=== PATIENT | female | born 1995 | race Caucasian/White ===

== ENCOUNTER 2022-07-01 15:26 | Emergency (ER) | payer OTHER, SELFPAY ==
[2022-07-01 15:30] VITALS: BP 127/60; PULSE 92; RESP 17; TEMP 36.8; O2SAT 100
--- NOTE | 2022-07-01 15:37 | ECG_ITS ---
Measurements Intervals [place] Rate: 91 P: 265 SC: 104 QRS: 58 QRSD: 89 T: 50 QT: 356 QTc: 438 Interpretive Statements ECTOPIC ATRIAL RHYTHM ABNORMAL ECG NO PREVIOUS ECG AVAILABLE FOR COMPARISON Electronically Signed On 07-01-2022 16:07:05 [employer] by Sharath Beckwith D.O.
--- NOTE | 2022-07-01 16:03 | ED.GENADULT ---
HPI - General Adult General Chief complaint: Unspecified Stated complaint: electrocuted at work Time Seen by Provider: 07/01/22 15:31 History of Present Illness HPI narrative: This is a 27-year-old female who comes in with chief complaint of electrical injury that occurred at work just prior to arrival. Patient states she was plugging in a blanket to a power strip without looking and accidentally touched the socket with her ring finger. States she was in contact with the socket for less than 5 seconds. Patient states there was pain at the ring finger at the time of injury but this has subsided. Reports nausea and headache at the time of injury but these have also subsided. She reports some shortness of breath and palpitations here in the ED. Denies muscle pains, hematuria. Denies LOC or head injury. denies any further injury or complaint. Related Data Allergies Allergy/AdvReac Type Severity Reaction Status Date / Time hepatitis B virus vaccine Allergy Severe Hives Verified 07/01/22 15:33 dairy Allergy Unknown Diarrhea Uncoded 02/06/22 09:23 Review of Systems Review of Systems: CONSTITUTIONAL: Denies fever, chills, or sweats. EYES: Denies visual changes, redness, or discharge. ENT: Denies rhinorrhea, congestion, sore throat, or otalgia. CARDIOVASCULAR: Endorses chest tightness and palpitations. denies chest pain, edema. RESPIRATORY: Endorses dyspnea. Denies cough. GASTROINTESTINAL: Denies abdominal pain, nausea, vomiting, or diarrhea. GENITOURINARY: Denies dysuria or hematuria. SKIN: Denies rash or itching. MUSCULOSKELETAL: Denies back pain, joint pain, or myalgia. NEUROLOGIC: Denies headache, numbness, dizziness, or weakness. PSYCHIATRIC: Denies anxiety or depression. [facility] Past Medical History Medical History (Updated 07/01/22 @ 16:34 by Alin Herrera PA-C) Migraine Migraines Scoliosis Family History Family History (Updated 02/06/22 @ 09:33 by Arianne Chacko CMA) Grandparent Alcoholism Grandparent Alcoholism Diabetes mellitus Cancer of bladder Sibling Scoliosis Mother Rheumatoid arthritis Social History Social History (Updated 02/06/22 @ 09:33 by Arianne Chacko CMA) Smoking status: Never smoker Alcohol intake: current Alcohol use details: socially Substance use: never Substance use type: does not use Exam Narrative: GENERAL: Well-appearing, well-nourished, and in no acute distress. HEAD: Normocephalic, atraumatic. EYES: PERRLA and EOMI. ENT: Nares clear, no rhinorrhea or epistaxis. Mucous membranes moist. Oropharynx without tonsillar hypertrophy exudate or other lesions. Bilateral TMs pearly browne nonbulging NECK: Supple. No adenopathy or masses. No carotid bruits or JVD CHEST: Clear to auscultation. No respiratory distress. No wheezes rales or rhonchi HEART: Regular rate and rhythm. No murmur heard. Normal peripheral pulses. ABDOMEN: Soft, nontender, nondistended, normal active bowel sounds. EXTREMITIES: Normal range of motion. No edema. Very minimal amount of erythema to the distal aspect of the left ring finger. No other lesions noted. No tenderness present. SKIN: Warm, dry, no rash. NEURO: No focal deficits. Alert and oriented x3. PSYCH: Normal mood and affect. Course Vital Signs Vital signs: Vital Signs Temperature 98.2 F 07/01/22 15:30 Pulse Rate 92 07/01/22 15:30 Respiratory Rate 17 07/01/22 15:30 Blood Pressure 127/60 07/01/22 15:30 Pulse Oximetry 100 07/01/22 15:30 Temperature 98.2 F 07/01/22 15:30 Pulse Rate 88 07/01/22 16:31 Respiratory Rate 17 07/01/22 15:30 Blood Pressure 127/60 07/01/22 15:30 Pulse Oximetry 100 07/01/22 15:30 Medical Decision Making [facility] Narrative Medical decision making narrative: 27-year-old female comes in with complaints of electrical injury occurring at work today prior to arrival in the ED. plugged an electric blanket to a socket and injured her left ring finger. EKG is normal sin
[2022-07-01 16:07] LABS: Creatine Kinase 61 U/L (30-135)
[2022-07-01 16:09] LABS: Anion Gap 6 mmol/L (8-16); Blood Urea Nitrogen 13 mg/dL (7-17); Calcium 9.2 mg/dL (8.4-10.2); Carbon Dioxide 29 mmol/L (22-30); Chloride 103 mmol/L (98-107); Estimated CRCL calculation 101 ml/min; Estimated Glomerular Filt Rate > 60; Glucose 98 mg/dL (65-110); Potassium 4.3 mmol/L (3.4-5.0); Sodium 138 mmol/L (137-145)
[2022-07-01 16:20] LABS: Troponin I < 0.012 ng/mL (0.000-0.034)
[2022-07-01 16:31] VITALS: PULSE 88
[2022-07-01 16:48] LABS: Appearance Urine Clear (Clear); Bilirubin Urine Negative (Negative); Blood Urine Trace-intact (Negative); Color Urine Yellow (Yellow); Glucose Urine UA Negative (Negative); Ketones Urine Negative (Negative); Leukocyte Esterase Ur Negative LEU/UL (Negative); Nitrate Urine Negative (Negative); Protein Urine Negative (Negative); Specific Grav Ur 1.015 (1.001-1.035); Urobilinogen Urine 0.2 mg/dL (<2.0)
[2022-07-01 16:56] LABS: RBC Urine 0-2 /hpf (0-2); Squamous Epithelial Cell Urine Rare /hpf (Few); WBC Urine 0-3 /hpf
[2022-07-01 16:58] LABS: Add Urine Microscopic? YES
[2022-07-01 17:29] VITALS: BP 113/68; PULSE 80; RESP 14; O2SAT 98
== END 2022-07-01 17:29 | disposition home or self-care (01) ==
PROVIDERS: Emergency Provider Nurse Practitioner Family; PCP Family Medicine
DX: T75.4XXA Electrocution, initial encounter (principal); W86.8XXA Exposure to other electric current, initial encounter
CPT/HCPCS: 36415; 80048; 81001; 82550; 84484; 93005; 99284